=== PATIENT | female | born 1975 | race Caucasian/White ===

== ENCOUNTER 2020-10-29 22:22 | Inpatient (IN) | payer BC ==
[2020-10-29] MEDS ORDERED: SODIUM CHLORIDE 0.9% 500 ML 500 ML IV STA (22:37)
[2020-10-29] MEDS ORDERED: MORPHINE SULFATE 4 MG/ML SYRINGE IVP STA (22:46)
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
[2020-10-29 22:49] LABS: Basophils % (A) 1 %; Eosinophils # (A) 0.3 k/uL (0-0.7); Eosinophils % (A) 4 %; HGB 15.1 gm/dL (11.4-16.0); Lymphocytes # (A) 2.8 k/uL (1.0-4.8); Lymphocytes % (A) 38 %; MCH 31.7 pg (25.0-35.0); MCHC 34.2 g/dL (31.0-37.0); MCV 92.7 fL (80.0-100.0); Mean Platelet Volume 6.6; Monocytes # (A) 0.4 k/uL (0-1.0); Monocytes % (A) 5 %; Neutrophils # (A) 3.6 k/uL (1.3-7.7); Neutrophils % (A) 49 %; Platelet Count 283 k/uL (150-450); RBC 4.75 m/uL (3.80-5.40); RDW 12.8 % (11.5-15.5); WBC 7.4 k/uL (3.8-10.6)
--- NOTE | 2020-10-29 22:56 | XR ---
EXAMINATION TYPE: XR pelvis AP view DATE OF EXAM: 10/29/2020 COMPARISON: NONE HISTORY: Trauma. Pain TECHNIQUE: Single view FINDINGS: Pelvic ring is intact. Proximal femurs and hip joints are intact. Sacroiliac joints are int act. IMPRESSION: No acute abnormality the pelvis.
[2020-10-29 22:58] LABS: ALT 56 U/L (4-34); AST 83 U/L (14-36); African American GFR (CKD) >90 (>60 ml/min/1.73 sqM); Albumin 4.9 g/dL (3.5-5.0); Alkaline Phosphatase 88 U/L (38-126); Anion Gap 15 mmol/L; Blood Urea Nitrogen 10 mg/dL (7-17); Calcium 9.2 mg/dL (8.4-10.2); Carbon Dioxide 21 mmol/L (22-30); Chloride 101 mmol/L (98-107); Creatine Kinase 153 U/L (30-135); Glucose 239 mg/dL (74-99); Non-African American GFR(CKD) >90 (>60 ml/min/1.73 sqM); Potassium 3.1 mmol/L (3.5-5.1); Sodium 137 mmol/L (137-145); Total Bilirubin 0.2 mg/dL (0.2-1.3); Total Protein 7.7 g/dL (6.3-8.2)
[2020-10-29 23:03] LABS: INR 0.9 (<1.2); Prothrombin Time 9.7 sec (9.0-12.0)
[2020-10-29 23:05] LABS: Partial Thromboplastin Time 19.6 sec (22.0-30.0)
--- NOTE | 2020-10-29 23:05 | XR ---
EXAMINATION TYPE: XR chest 1V portable DATE OF EXAM: 10/29/2020 COMPARISON: NONE HISTORY: Pain. Trauma. TECHNIQUE: Single view FINDINGS: There are numerous right-sided rib fractures with displacement. There is some mild pleural thickening on the right lateral chest wall consistent with hemorrhage. Heart and mediastinum are norm al. There is no pneumothorax. Trachea is midline. IMPRESSION: Numerous right-sided rib fractures. There is significant displacement and the ribs involv ed are at least this second rib to the eighth rib.
[2020-10-29 23:21] LABS: Alcohol 176 mg/dL
[2020-10-29] MEDS ORDERED: HYDROmorphone 1 MG/ML 1 ML SYRINGE IVP STA (23:26)
--- NOTE | 2020-10-29 23:32 | CT ---
EXAMINATION TYPE: CT brain cspine wo con DATE OF EXAM: 10/29/2020 COMPARISON: None HISTORY: trauma CT DLP: 1461.1 mGycm Automated exposure control for dose reduction was used. Ventricles have normal size. There is no mass effect nor midline shift. There is no sign of intracran ial hemorrhage. Calvarium is intact. Cervical vertebra have normal alignment. Posterior elements are intact. There is narrowing of C5-6 di sc space with spur formation. Facet joints are intact. Prevertebral soft tissues are intact. IMPRESSION: Minor degenerative disc changes at C5-6. No fracture. Negative CT scan of the brain.
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
[2020-10-30] MEDS ORDERED: LORazepam 2 MG/ML INJ IV PRN ×3 (00:06)
[2020-10-30] MEDS ORDERED: ONDANSETRON 4 MG/2 ML VIAL IVP PRN (00:06)
[2020-10-30] MEDS ORDERED: THIAMINE 100 MG/ML 2 ML VIAL IM STA (00:06)
[2020-10-30] MEDS ORDERED: NALOXONE 0.4 MG/ML 1 ML VIAL IV PRN (00:06)
[2020-10-30] MEDS ORDERED: MORPHINE SULFATE 4 MG/ML SYRINGE IV PRN (00:06)
[2020-10-30 00:46] LABS: Appearance,Urine Clear (Clear); Bilirubin,Urine Negative (Negative); Blood,Urine Negative (Negative); Color,Urine Colorless; Glucose,Urine (UA) 3+ (Negative); Ketones,Urine Negative (Negative); Leukocyte Esterase,Urine Negative (Negative); Nitrite,Urine Negative (Negative); Protein,Urine Negative (Negative); Urobilinogen,Urine <2.0 mg/dL (<2.0)
[2020-10-30 01:04] LABS: Amphetamine Screen,Urine Not Detected (NotDetected); Barbiturate Screen,Urine Not Detected (NotDetected); Benzodiazepines Screen,Urine Not Detected (NotDetected); Cocaine Screen,Urine Not Detected (NotDetected); Methadone Screen, Urine Not Detected (NotDetected); Opiate Screen,Urine Detected (NotDetected); Oxycodone Screen, Urine Not Detected (NotDetected); Phencyclidine Screen,Urine Not Detected (NotDetected); Tricyclic Antidepressant,Urine Not Detected (NotDetected); Urn Cannabinoid Scrn Not Detected (NotDetected)
[2020-10-30] MEDS: SODIUM CHLORIDE 0.9% 1,000 ML IV SCH ×4 (01:11→23:37)
[2020-10-30] MEDS: HYDROmorphone 1 MG/ML 1 ML SYRINGE IVP PRN ×4 (04:28→18:26)
[2020-10-30] MEDS: THIAMINE 100 MG TAB PO SCH ×2 (07:25→16:34)
[2020-10-30] MEDS ORDERED: SENNOSIDES 8.6 MG TAB PO PRN (09:48)
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
[2020-10-30] MEDS: KETOROLAC 15 MG/ML 1 ML VIAL IVP SCH ×2 (10:16→17:22)
--- NOTE | 2020-10-30 10:26 | XR ---
EXAMINATION TYPE: XR chest 1V DATE OF EXAM: 10/30/2020 COMPARISON: 10/29/2020 HISTORY: 45 years Female. STUDY INDICATION GIVEN: hemopneumothorax . TECHNIQUE: AP chest radiograph IMPRESSION: Displaced right-sided rib fractures are again seen, the CT thorax from 10/29/2020 for details . Right lung peripheral opacities may represent contusion or/subsegmental atelectasis. Small right pleural effusion. No large right pneumothorax. Heart and mediastinum are within normal limit
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
[2020-10-30] MEDS: LIDOCAINE 5% PATCH TOPICAL SCH (13:22)
[2020-10-30] MEDS: methocarbamoL 500 MG TAB PO SCH ×3 (15:08→21:31)
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
[2020-10-31] MEDS: KETOROLAC 15 MG/ML 1 ML VIAL IVP SCH ×4 (00:04→17:36)
[2020-10-31] MEDS: HYDROmorphone 1 MG/ML 1 ML SYRINGE IVP PRN ×3 (01:55→13:56)
[2020-10-31] MEDS: LEVOTHYROXINE 75 MCG TAB PO SCH (06:14)
[2020-10-31] MEDS: CYANOCOBALAMIN 500 MCG TAB PO SCH (07:23)
[2020-10-31] MEDS: ASCORBIC ACID 500 MG TAB PO SCH (07:23)
[2020-10-31] MEDS: THIAMINE 100 MG TAB PO SCH ×2 (07:23→17:35)
[2020-10-31] MEDS: SODIUM CHLORIDE 0.9% 1,000 ML IV SCH ×3 (07:25→23:38)
[2020-10-31] MEDS: LIDOCAINE 5% PATCH TOPICAL SCH (07:25)
[2020-10-31] MEDS: NIACIN TR 500 MG CAPLET PO SCH (07:26)
[2020-10-31] MEDS: methocarbamoL 500 MG TAB PO SCH ×4 (07:26→22:13)
[2020-10-31] MEDS: VITAMIN E (DL,TOCOPHERYL ACET) 400 UNIT (180 MG) CAP PO SCH (07:26)
[2020-10-31] MEDS ORDERED: NON FORMULARY DRUG (Biotin [Biotin] 5 MG Capsule) PO SCH (09:00)
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
--- NOTE | 2020-10-31 09:25 | XR ---
EXAMINATION TYPE: XR chest 1V portable DATE OF EXAM: 10/31/2020 COMPARISON: Chest radiograph October 30, 2020, chest CT October 29, 2020. HISTORY: Right-sided pneumothorax TECHNIQUE: Single frontal view of the chest is obtained. FINDINGS: Cardiomediastinal silhouette and pulmonary vasculature are within normal limits. There is redemonstration of multiple, displaced fractures of several right upper ribs. The tiny pneumothorax seen on the recent CT is not evident on the current examination. IMPRESSION: There is redemonstration of multiple, displaced fractures of several right upper ribs. The tiny pneumothorax seen on the recent CT is not evident on the current examination. Recommend foll ow-up study with CT.
[2020-10-31 11:21] LABS: Basophils # (A) 0.03 X 10*3/uL (0.00-0.10); Basophils % (A) 0.3 %; Eosinophils # (A) 0.14 X 10*3/uL (0.04-0.35); Eosinophils % (A) 1.5 %; HCT 38.3 % (37.2-46.3); HGB 12.9 g/dL (12.0-15.0); Lymphocytes # (A) 1.49 X 10*3/uL (0.90-5.00); Lymphocytes % (A) 15.8 %; MCH 30.6 pg (27.0-32.0); MCHC 33.7 g/dL (32.0-37.0); MCV 90.8 fL (80.0-97.0); Mean Platelet Volume 9.6 fL (9.5-12.2); Monocytes % (A) 8.5 %; Neutrophils # (A) 6.96 X 10*3/uL (1.80-7.70); Neutrophils % (A) 73.6 %; Platelet Count 211 X 10*3/uL (140-440); RBC 4.22 X 10*6/uL (4.10-5.20); RDW 12.1 % (11.5-14.5); WBC 9.45 X 10*3/uL (4.50-10.00)
[2020-10-31 12:31] LABS: African American GFR (CKD) 145.8 (60.0-200.0); Albumin 4.3 g/dL (3.80-4.90); Albumin/Globulin Ratio 2.05 (1.60-3.17); Anion Gap 6.6 mmol/L (4.00-12.00); BUN/Creat Ratio 17.5 Ratio (12.00-20.00); Calcium 8.9 mg/dL (8.7-10.3); Carbon Dioxide 23.4 mmol/L (21.6-31.8); Globulin 2.1 g/dL (1.6-3.3); Magnesium 1.6 mg/dL (1.5-2.4); Non-African American GFR(CKD) 125.8 (60.0-200.0); Phosphorus 2.1 mg/dL (2.4-5.1); Potassium 3.7 mmol/L (3.5-5.5); Total Bilirubin 0.8 mg/dL (0.3-1.2); Total Protein 6.4 g/dL (6.2-8.2)
--- NOTE | 2020-10-31 14:40 | P.PN ---
Subjective Progress Note Date: 10/31/20 Patient is lying in bed today she states her pain is somewhat better but still having right-sided chest and back pain related to taking a deep breath. She has not really been out of bed today. She apparently is pulling around the thousand on her incentive spirometer. Objective - Vital Signs Vital signs: Vital Signs Temp 98.9 F 10/31/20 08:00 Pulse 72 10/31/20 08:00 Resp 20 10/31/20 08:00 BP 158/97 10/31/20 08:00 Pulse Ox 94 L 10/31/20 08:00 Intake & Output 10/30/20 10/31/20 10/31/20 18:59 06:59 18:59 Intake Total 1040 Output Total 597 716 0186 Balance 240 -700 -2400 Intake: IV 1040 Sodium Chloride 0.9% 1, 1040 000 ml @ 130 mls/hr IV . Q7H42M [facility] Rx#:[id number] Output: Urine 693 080 [id number] Uretheral (Faye) 800 Other: Voiding Method Indwelling Catheter Indwelling Catheter Indwelling Catheter - Constitutional General appearance: Present: cooperative - Cardiovascular Rhythm: regular - Labs CBC & Chem 7: 10/31/20 06:59 10/31/20 06:59 Labs: Abnormal Lab Results - Last 24 Hours (Table) 10/31/20 Range/Units 06:59 BUN 7.0 L (9.0-27.0) mg/dL Creatinine 0.4 L (0.6-1.5) mg/dL Glucose 193 H (70-110) mg/dL Phosphorus 2.1 L (2.4-5.1) mg/dL Assessment and Plan Assessment: Multiple rib fractures on the right displaced. Hemopneumothorax Plan: I had a discussion with the patient about pulmonary toilet and the importance of this to prevent pneumonia. She needs to be using her incentive spirometer. She needs to be ambulating out of the bed once an hour. Faye catheter needs to be discontinued she'll be weaned off of her oxygen. Patient also needs to be weaned off of her IV Dilaudid and started on an oral [place]. Plan for discharge tomorrow.
[2020-10-31] MEDS: HYDROcodone/APAP 7.5-325MG 1 EACH TAB PO PRN ×2 (16:26→22:13)
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
[2020-11-01] MEDS: HYDROcodone/APAP 7.5-325MG 1 EACH TAB PO PRN ×4 (03:21→22:06)
[2020-11-01] MEDS: KETOROLAC 15 MG/ML 1 ML VIAL IVP SCH ×5 (05:59→17:48)
[2020-11-01] MEDS: LEVOTHYROXINE 75 MCG TAB PO SCH (06:01)
[2020-11-01] MEDS: SODIUM CHLORIDE 0.9% 1,000 ML IV SCH ×3 (07:26→21:57)
--- NOTE | 2020-11-01 07:36 | XR ---
EXAMINATION TYPE: XR chest 1V portable DATE OF EXAM: 11/01/2020 COMPARISON: 10/31/2020 INDICATION: Right-sided pneumothorax TECHNIQUE: Single frontal view of the chest is obtained. FINDINGS: The heart size is normal. The pulmonary vasculature is normal. Multiple right-sided rib fractures are again evident. There is an increase in a right apical pneumoth orax currently approaching 20% which is increased from comparison. IMPRESSION: 1. Increasing right-sided pneumothorax A Red level critical message alert has been initiated for Carol Ann Ceron via the [employer] System on 11/01/2020 7:34 AM. This message alert has been sent to Carol Ann Ceron via the [employer] ences provided by the clinician for the receipt of Radiology Critical Findings. Message ID [id number].
[2020-11-01] MEDS: CYANOCOBALAMIN 500 MCG TAB PO SCH (09:08)
[2020-11-01] MEDS: THIAMINE 100 MG TAB PO SCH ×2 (09:08→16:32)
[2020-11-01] MEDS: VITAMIN E (DL,TOCOPHERYL ACET) 400 UNIT (180 MG) CAP PO SCH (09:08)
[2020-11-01] MEDS: methocarbamoL 500 MG TAB PO SCH ×2 (09:08→13:42)
[2020-11-01] MEDS: NIACIN TR 500 MG CAPLET PO SCH (09:08)
[2020-11-01] MEDS: ASCORBIC ACID 500 MG TAB PO SCH (09:08)
[2020-11-01] MEDS: LIDOCAINE 5% PATCH TOPICAL SCH (09:19)
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
[2020-11-01] MEDS ORDERED: diphenhydrAMINE 50 MG/ML 1 ML VIAL IVP STA (13:40)
[2020-11-01] MEDS ORDERED: FAMOTIDINE 20 MG TAB PO STA (13:40)
[2020-11-01] MEDS: methylPREDNISolone SOD SUCCI 125 MG/2 ML VIAL IV STA ×2 (13:56→14:01)
--- NOTE | 2020-11-01 14:32 | P.PN ---
Subjective Progress Note Date: 11/01/20 Patient is up to chair feeling much better today. Pain well controlled on oral meds. She did have an increase in pneumothorax on CXR today to 20%. Denies SOB Objective - Vital Signs Vital signs: Vital Signs Temp 99.3 F 11/01/20 07:59 Pulse 88 11/01/20 07:59 Resp 16 11/01/20 07:59 BP 172/108 11/01/20 07:59 Pulse Ox 94 L 11/01/20 07:59 Intake & Output 10/31/20 11/01/20 11/01/20 18:59 06:59 18:59 Output Total 3400 0 Balance -3400 0 Output: Urine 3400 Uretheral (Faye) 1000 Post Void Residual 0 Other: Voiding Method Indwelling Catheter Toilet - Constitutional General appearance: Present: cooperative - Cardiovascular Rhythm: regular - Psychiatric Psychiatric: Present: A&O x's 3 - Labs CBC & Chem 7: 10/31/20 06:59 10/31/20 06:59 Assessment and Plan Assessment: Multiple rib fractures on the right displaced. Hemopneumothorax Plan: Patient is feeling better today sating in the 90s on RA with no SOB however there was interval increase in size of pneumothorax on cxr this AM. Given this patient will not be discharged home today, we will repeat 2view CXR in AM if pneumo is stable she will be discharged home then to follow up with CT surgery by the end of the week with another cxr. Plan was discussed with CT sx. who agreed.
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
[2020-11-01] MEDS ORDERED: diphenhydrAMINE 25 MG CAP PO STA (19:36)
[2020-11-02] MEDS: KETOROLAC 15 MG/ML 1 ML VIAL IVP SCH ×2 (00:50→06:20)
[2020-11-02] MEDS: SODIUM CHLORIDE 0.9% 1,000 ML IV SCH (03:01)
[2020-11-02] MEDS: HYDROcodone/APAP 7.5-325MG 1 EACH TAB PO PRN ×2 (05:02→11:02)
[2020-11-02] MEDS: LEVOTHYROXINE 75 MCG TAB PO SCH (06:18)
[2020-11-02] MEDS ORDERED: KETOROLAC 15 MG/ML 1 ML VIAL IVP PRN (07:07)
[2020-11-02 07:41] VITALS: BP 171/97; PULSE 68; RESP 16; TEMP 97.9
[2020-11-02] MEDS: CYANOCOBALAMIN 500 MCG TAB PO SCH (08:11)
[2020-11-02] MEDS: ASCORBIC ACID 500 MG TAB PO SCH (08:11)
[2020-11-02] MEDS: THIAMINE 100 MG TAB PO SCH (08:11)
[2020-11-02] MEDS: NIACIN TR 500 MG CAPLET PO SCH (08:11)
[2020-11-02] MEDS: VITAMIN E (DL,TOCOPHERYL ACET) 400 UNIT (180 MG) CAP PO SCH (08:12)
[2020-11-02] MEDS: LIDOCAINE 5% PATCH TOPICAL SCH (08:13)
--- NOTE | 2020-11-02 10:21 | XR ---
EXAMINATION TYPE: XR chest 2V DATE OF EXAM: 11/02/2020 COMPARISON: 11/02/2019 INDICATION: Right-sided pneumothorax TECHNIQUE: Frontal and lateral views of the chest are obtained. FINDINGS: The heart size is normal. The pulmonary vasculature is normal. Some minimal fluid is at the right lung base.. There is a small to moderate right sided pneumothorax, stable comparison. Multiple right-sided rib fr actures remain evident. No midline mediastinal shift is evident. IMPRESSION: 1. Stable [id number] right pneumothorax.
--- NOTE | 2020-11-02 11:52 | P.PN ---
Subjective Progress Note Date: 11/02/20 Patient is up to chair feeling much better today. Pain well controlled on oral meds. No SOB Objective - Vital Signs Vital signs: Vital Signs Temp 97.9 F 11/02/20 07:40 Pulse 68 11/02/20 07:40 Resp 16 11/02/20 07:40 BP 171/97 11/02/20 07:40 Pulse Ox 92 L 11/02/20 07:40 Intake & Output 11/01/20 11/02/20 11/02/20 18:59 06:59 18:59 Output Total 0 Balance 0 Output: Post Void Residual 0 Other: Voiding Method Toilet Toilet # Voids 2 - Constitutional General appearance: Present: cooperative - Respiratory Details: nonlabored - Labs CBC & Chem 7: 10/31/20 06:59 10/31/20 06:59 Assessment and Plan Assessment: Multiple rib fractures on the right displaced. Hemopneumothorax Plan: Pneumothorax stable on CXR. Patient is cleared from CT surgery to DC home and follow up with CT surgery as an outpatient on the . She will be getting a CXR prior to that appointment. Patient to be DC home today
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
[2020-11-04] MEDS ORDERED: ERGOCALCIFEROL 1,250 MCG (50,000 IU) CAPSULE PO SCH (09:00)
== END 2020-11-02 14:14 | disposition home or self-care (01) | DRG 183 ==
LOC: EC 22:22 → SUPCPDRO 22:22 → 4SSUR 10-30 00:11
PROVIDERS: ADMIT Student in an Organized Health Care Education/Training Program; ATTEND Student in an Organized Health Care Education/Training Program
DX: S22.41XA Multiple fractures of ribs, right side, initial encounter for closed fracture (principal); S27.2XXA Traumatic hemopneumothorax, initial encounter; V86.55XA Driver of 3- or 4- wheeled all-terrain vehicle (ATV) injured in nontraffic accident, initial encounter; Z88.2 Allergy status to sulfonamides; Z88.0 Allergy status to penicillin; Z88.1 Allergy status to other antibiotic agents; F17.200 Nicotine dependence, unspecified, uncomplicated; F10.129 Alcohol abuse with intoxication, unspecified; E03.9 Hypothyroidism, unspecified; E87.6 Hypokalemia; F41.9 Anxiety disorder, unspecified; Z79.890 Hormone replacement therapy; Z82.49 Family history of ischemic heart disease and other diseases of the circulatory system; Z83.3 Family history of diabetes mellitus; Z87.442 Personal history of urinary calculi; R00.0 Tachycardia, unspecified; R73.9 Hyperglycemia, unspecified; R21 Rash and other nonspecific skin eruption
CPT/HCPCS: 36415; 70450; 71045; 71046; 71260; 72125; 72170; 74177; 80053; 80306; 80320; 81003; 82550; 83735; 84100; 84484; 85025; 85610; 85730; 86850; 86900; 86901; 93005; 96361; 96374; 96375; 99291

== ENCOUNTER → 2020-11-05 | Outpatient (CLI) | payer BC ==
--- NOTE | 2020-11-05 09:46 | XR ---
EXAMINATION TYPE: XR chest 2V DATE OF EXAM: 11/05/2020 COMPARISON: 11/02/2020 HISTORY: Follow-up chest trauma and pneumothorax TECHNIQUE: Single frontal view of the chest is obtained. FINDINGS: The right lung apex is devoid of lung markings and I suspect enlarging pneumothorax. No pneumothorax is estimated at 10-15%. Multiple displaced right-sided rib fractures are redemonstrated. Right basila r hemothorax suspected. Left lung is clear. No evidence for mediastinal shift. The heart is normal si ze. IMPRESSION: 1. Enlarging right apical pneumothorax estimated at 10-15%. Fluid level at the right lung base likely reflects pneumothorax described on prior CT. Multiple displaced rib fractures are noted right chest wall.
== END | disposition home or self-care (01) ==
LOC: RADXRMAIN 09:10
PROVIDERS: ATTEND Nurse Practitioner Acute Care
DX: S22.41XA Multiple fractures of ribs, right side, initial encounter for closed fracture (principal); J93.9 Pneumothorax, unspecified
CPT/HCPCS: 71046

== ENCOUNTER → 2020-12-13 | Outpatient (CLI) | payer BC ==
--- NOTE | 2020-12-13 12:41 | XR ---
EXAMINATION TYPE: XR chest 2V DATE OF EXAM: 12/13/2020 COMPARISON: 12/13/2020 HISTORY: Punctured right lung and broken ribs TECHNIQUE: Frontal and lateral views of the chest are obtained. FINDINGS: There is no focal air space opacity, pleural effusion, or pneumothorax seen. The cardiac silhouette size is within normal limits. Right rib fractures are redemonstrated. IMPRESSION: Right rib fractures.
--- NOTE | 2020-12-13 12:48 | XR ---
EXAMINATION TYPE: XR ribs RT DATE OF EXAM: 12/13/2020 COMPARISON: 11/05/2020 HISTORY: [Right side TECHNIQUE: 4 views right RIBS FINDINGS: The right 3 through eighth ribs are fractured with displacement with bony remodeling. Visualized port ions of the right lung are unremarkable. IMPRESSION: Right rib fractures (3 through 8).
== END | disposition home or self-care (01) ==
LOC: RADXRMAIN 11:40
PROVIDERS: ATTEND Family Medicine
DX: S22.41XA Multiple fractures of ribs, right side, initial encounter for closed fracture (principal)
CPT/HCPCS: 71046